=== PATIENT | male | born 1940 | race African-American/Black ===

== ENCOUNTER 2022-06-03 12:17 | Day surgery (SDC) | payer MEDICARE, OTHER ==
[~2022-06-03] VITALS: Ht 170.2 cm; Wt 142.3 kg
[2022-06-03] VITALS (9 sets, daily range): BP systolic 117–141; BP diastolic 65–85
[2022-06-03] MEDS ORDERED: normal saline 1000ml 1,000 ML IV SCH (12:45)
[2022-06-03] MEDS ORDERED: fentaNYL/PF 50MCG/1 ML 2ML syringe IV ONE (12:45)
[2022-06-03] MEDS ORDERED: MIDAZolam 1mg/ml 10ml vial IV ONE (12:45)
[2022-06-03] MEDS ORDERED: DILT360C32 PO (13:00)
[2022-06-03] MEDS ORDERED: OMEP20CA15 PO (13:00)
[2022-06-03] MEDS ORDERED: LOSA100T57 PO (13:00)
[2022-06-03] MEDS ORDERED: MINO2.5T2 PO (13:00)
[2022-06-03] MEDS ORDERED: PRAV40TA3 PO (13:00)
[2022-06-03] MEDS ORDERED: FURO40TA4 PO (13:00)
[2022-06-03] MEDS ORDERED: POTA-82 PO (13:00)
[2022-06-03] MEDS ORDERED: APIX5TAB3 PO (13:00)
[2022-06-03] MEDS ORDERED: FURO80TA3 PO (13:00)
[2022-06-03] MEDS ORDERED: AMIO200T67 PO (13:00)
[2022-06-03] MEDS ORDERED: SEMA0.258 (13:00)
[2022-06-03] MEDS ORDERED: GABA300C PO (13:00)
[2022-06-03] MEDS ORDERED: FINA5TAB11 PO (13:00)
[2022-06-03] MEDS ORDERED: FLO0.4C PO (13:00)
[2022-06-03] MEDS ORDERED: EMPA10TA PO (13:00)
== END 2022-06-03 14:40 | disposition home or self-care (01) ==
LOC: SSTAY O 12:17
PROVIDERS: ATTEND Student in an Organized Health Care Education/Training Program
DX: I48.91 Unspecified atrial fibrillation (principal); Z79.899 Other long term (current) drug therapy; E11.22 Type 2 diabetes mellitus with diabetic chronic kidney disease; E11.40 Type 2 diabetes mellitus with diabetic neuropathy, unspecified; I50.9 Heart failure, unspecified; I25.2 Old myocardial infarction; G47.30 Sleep apnea, unspecified; Z98.890 Other specified postprocedural states
CPT/HCPCS: 82948; 92960; 93005; J2250; J3010; J7030; A4620